=== PATIENT | male | born 1950 | race Two or more races ===

== ENCOUNTER 2018-02-01 11:34 | Outpatient (CLI) | payer MEDICARE, OTHER | END 2018-02-01 23:59 | LOC: WOU 11:34 | PROVIDERS: ATTEND Podiatrist Foot & Ankle Surgery | DX: E11.610 Type 2 diabetes mellitus with diabetic neuropathic arthropathy (principal); E11.42 Type 2 diabetes mellitus with diabetic polyneuropathy; E11.22 Type 2 diabetes mellitus with diabetic chronic kidney disease; I12.0 Hypertensive chronic kidney disease with stage 5 chronic kidney disease or end stage renal disease; N18.6 End stage renal disease; Z99.2 Dependence on renal dialysis; Z79.4 Long term (current) use of insulin; Z79.82 Long term (current) use of aspirin; Z79.899 Other long term (current) drug therapy; E78.5 Hyperlipidemia, unspecified; I25.2 Old myocardial infarction; Z87.891 Personal history of nicotine dependence; Z95.1 Presence of aortocoronary bypass graft; Z98.62 Peripheral vascular angioplasty status ==

== ENCOUNTER 2018-02-22 13:00 | Outpatient (CLI) | payer MEDICARE | END 2018-02-22 23:59 | disposition home or self-care (01) | LOC: WOU 13:00 | PROVIDERS: ATTEND Podiatrist Foot & Ankle Surgery | DX: E11.610 Type 2 diabetes mellitus with diabetic neuropathic arthropathy (principal); E11.42 Type 2 diabetes mellitus with diabetic polyneuropathy; R60.0 Localized edema; M25.374 Other instability, right foot; Z79.4 Long term (current) use of insulin; Z79.82 Long term (current) use of aspirin | CPT/HCPCS: G0463 ==

== ENCOUNTER 2018-03-29 11:02 | Outpatient (CLI) | payer MEDICARE | END 2018-03-29 23:59 | disposition home health service (06) | LOC: WOU 11:02 | PROVIDERS: ATTEND Podiatrist Foot & Ankle Surgery | DX: E11.622 Type 2 diabetes mellitus with other skin ulcer (principal); L97.318 Non-pressure chronic ulcer of right ankle with other specified severity; E11.610 Type 2 diabetes mellitus with diabetic neuropathic arthropathy; E11.42 Type 2 diabetes mellitus with diabetic polyneuropathy; E11.21 Type 2 diabetes mellitus with diabetic nephropathy; Z79.4 Long term (current) use of insulin; Z99.2 Dependence on renal dialysis; Z79.82 Long term (current) use of aspirin; Z79.899 Other long term (current) drug therapy | CPT/HCPCS: A6402; G0463; Z7610 ==

== ENCOUNTER 2018-04-05 10:52 | Outpatient (CLI) | payer MEDICARE | END 2018-04-05 23:59 | disposition home health service (06) | LOC: WOU 10:52 | PROVIDERS: ATTEND Podiatrist Foot & Ankle Surgery | DX: E11.621 Type 2 diabetes mellitus with foot ulcer (principal); L97.318 Non-pressure chronic ulcer of right ankle with other specified severity; E11.610 Type 2 diabetes mellitus with diabetic neuropathic arthropathy; E11.42 Type 2 diabetes mellitus with diabetic polyneuropathy; L84 Corns and callosities; M21.40 Flat foot [pes planus] (acquired), unspecified foot; Z79.82 Long term (current) use of aspirin; Z79.4 Long term (current) use of insulin; Z79.899 Other long term (current) drug therapy | CPT/HCPCS: A6402; G0463 ==

== ENCOUNTER 2018-04-12 11:01 | Outpatient (CLI) | payer MEDICARE, MEDICAID | END 2018-04-12 23:59 | disposition home or self-care (01) | LOC: WOU 11:01 | PROVIDERS: ATTEND Podiatrist Foot & Ankle Surgery | DX: E11.622 Type 2 diabetes mellitus with other skin ulcer (principal); L97.318 Non-pressure chronic ulcer of right ankle with other specified severity; E11.610 Type 2 diabetes mellitus with diabetic neuropathic arthropathy; Z79.4 Long term (current) use of insulin; L84 Corns and callosities; Z79.82 Long term (current) use of aspirin; Z79.899 Other long term (current) drug therapy | CPT/HCPCS: A6402; G0463; Z7610 ==

== ENCOUNTER 2018-06-14 11:20 | Outpatient (CLI) | payer MEDICARE, MEDICAID | END 2018-06-14 23:59 | disposition home health service (06) | LOC: WOU 11:20 | PROVIDERS: ATTEND Podiatrist Foot & Ankle Surgery | DX: Z47.89 Encounter for other orthopedic aftercare (principal); E11.610 Type 2 diabetes mellitus with diabetic neuropathic arthropathy; L03.115 Cellulitis of right lower limb; Z98.1 Arthrodesis status; I10 Essential (primary) hypertension; E78.5 Hyperlipidemia, unspecified; I25.2 Old myocardial infarction; Z87.891 Personal history of nicotine dependence; Z95.1 Presence of aortocoronary bypass graft | CPT/HCPCS: A6402; G0463; Z7610 ==

== ENCOUNTER 2018-06-21 09:23 | Outpatient (CLI) | payer MEDICARE, MEDICAID | END 2018-06-21 23:59 | disposition home health service (06) | LOC: WOU 09:23 | PROVIDERS: ATTEND Podiatrist Foot & Ankle Surgery | DX: Z47.89 Encounter for other orthopedic aftercare (principal); Z98.1 Arthrodesis status; M14.671 Charcot's joint, right ankle and foot; R60.0 Localized edema; L53.9 Erythematous condition, unspecified; Z79.82 Long term (current) use of aspirin | CPT/HCPCS: 73630; A6402 ×3; G0463; J3490; Z7610 ==

== ENCOUNTER 2018-08-30 09:27 | Outpatient (CLI) | payer MEDICARE, OTHER | END 2018-08-30 23:59 | disposition home or self-care (01) | LOC: WOU 09:27 | PROVIDERS: ATTEND Podiatrist Foot & Ankle Surgery | DX: E11.610 Type 2 diabetes mellitus with diabetic neuropathic arthropathy (principal); E11.42 Type 2 diabetes mellitus with diabetic polyneuropathy; R60.0 Localized edema; R26.89 Other abnormalities of gait and mobility; Z79.82 Long term (current) use of aspirin | CPT/HCPCS: 82962-TC; G0463 ==

== ENCOUNTER 2018-09-27 09:00 | Outpatient (CLI) | payer MEDICARE, OTHER | END 2018-09-27 23:59 | disposition home or self-care (01) | LOC: WOU 09:00 | PROVIDERS: ATTEND Podiatrist Foot & Ankle Surgery | DX: E11.610 Type 2 diabetes mellitus with diabetic neuropathic arthropathy (principal); E11.22 Type 2 diabetes mellitus with diabetic chronic kidney disease; E11.42 Type 2 diabetes mellitus with diabetic polyneuropathy; N18.6 End stage renal disease; Z99.2 Dependence on renal dialysis; Z79.4 Long term (current) use of insulin; B35.1 Tinea unguium; R60.9 Edema, unspecified; Z79.82 Long term (current) use of aspirin | CPT/HCPCS: G0463; Z7610 ==

== ENCOUNTER 2018-10-25 10:25 | Outpatient (CLI) | payer MEDICARE, OTHER | END 2018-10-25 23:59 | disposition home or self-care (01) | LOC: WOU 10:25 | PROVIDERS: ATTEND Podiatrist Foot & Ankle Surgery | DX: E11.610 Type 2 diabetes mellitus with diabetic neuropathic arthropathy (principal); R26.9 Unspecified abnormalities of gait and mobility; E11.42 Type 2 diabetes mellitus with diabetic polyneuropathy; Z79.4 Long term (current) use of insulin; Z79.82 Long term (current) use of aspirin; R60.0 Localized edema | CPT/HCPCS: G0463 ==

== ENCOUNTER 2018-11-22 10:30 | Outpatient (CLI) | payer MEDICARE, OTHER | END 2018-11-22 23:59 | disposition home or self-care (01) | LOC: WOU 10:30 | PROVIDERS: ATTEND Podiatrist Foot & Ankle Surgery | DX: E11.610 Type 2 diabetes mellitus with diabetic neuropathic arthropathy (principal); E11.42 Type 2 diabetes mellitus with diabetic polyneuropathy; Z79.82 Long term (current) use of aspirin; Z79.4 Long term (current) use of insulin; Z79.891 Long term (current) use of opiate analgesic; R60.0 Localized edema; Z98.890 Other specified postprocedural states | CPT/HCPCS: G0463 ==

== ENCOUNTER 2018-12-20 10:00 | Outpatient (CLI) | payer MEDICARE, OTHER | END 2018-12-20 23:59 | disposition home or self-care (01) | LOC: WOU 10:00 | PROVIDERS: ATTEND Podiatrist Foot & Ankle Surgery | DX: E11.610 Type 2 diabetes mellitus with diabetic neuropathic arthropathy (principal); E11.42 Type 2 diabetes mellitus with diabetic polyneuropathy; R60.0 Localized edema; B35.1 Tinea unguium; B35.3 Tinea pedis; Z79.82 Long term (current) use of aspirin; Z79.4 Long term (current) use of insulin; Z79.891 Long term (current) use of opiate analgesic | CPT/HCPCS: G0463 ==

== ENCOUNTER 2019-02-14 11:05 | Outpatient (CLI) | payer MEDICARE, OTHER | END 2019-02-14 23:59 | disposition home or self-care (01) | LOC: WOU 11:05 | PROVIDERS: ATTEND Podiatrist Foot & Ankle Surgery | DX: E11.610 Type 2 diabetes mellitus with diabetic neuropathic arthropathy (principal); E11.42 Type 2 diabetes mellitus with diabetic polyneuropathy; Z79.4 Long term (current) use of insulin; R60.0 Localized edema; Z79.82 Long term (current) use of aspirin; Z79.899 Other long term (current) drug therapy | CPT/HCPCS: G0463 ==

== ENCOUNTER 2019-06-06 10:45 | Outpatient (CLI) | payer MEDICARE, OTHER | END 2019-06-06 23:59 | disposition home health service (06) | LOC: WOU 10:45 | PROVIDERS: ATTEND Podiatrist Foot & Ankle Surgery | DX: E11.610 Type 2 diabetes mellitus with diabetic neuropathic arthropathy (principal); E11.42 Type 2 diabetes mellitus with diabetic polyneuropathy; E11.22 Type 2 diabetes mellitus with diabetic chronic kidney disease; I12.0 Hypertensive chronic kidney disease with stage 5 chronic kidney disease or end stage renal disease; N18.6 End stage renal disease; Z99.2 Dependence on renal dialysis; Z87.891 Personal history of nicotine dependence; Z79.4 Long term (current) use of insulin; Z98.1 Arthrodesis status; Z95.1 Presence of aortocoronary bypass graft | CPT/HCPCS: G0463 ==

== ENCOUNTER 2019-08-01 11:00 | Outpatient (CLI) | payer MEDICARE, OTHER | END 2019-08-01 23:59 | disposition home health service (06) | LOC: WOU 11:00 | PROVIDERS: ATTEND Podiatrist Foot & Ankle Surgery | DX: E11.621 Type 2 diabetes mellitus with foot ulcer (principal); L97.512 Non-pressure chronic ulcer of other part of right foot with fat layer exposed; E11.610 Type 2 diabetes mellitus with diabetic neuropathic arthropathy; E11.42 Type 2 diabetes mellitus with diabetic polyneuropathy; L03.031 Cellulitis of right toe; Z79.899 Other long term (current) drug therapy | CPT/HCPCS: G0463 ==

== ENCOUNTER → 2019-08-08 | Outpatient (CLI) | payer MEDICARE, OTHER ==
[~2019-08-08] MED LIST: ALLO100T PO; ASPI-1169 PO; ATOR10TA PO; CALC667C6 PO; CARI350T27 PO; CHOL200026 PO; DICL100G34 TD; DOXA4TAB3 PO; DULO30CA52 PO; FOLI0.8T2 PO; GABA600T12 PO; HYDR-3972 PO; INSU100I4 SQ; INSU300I SQ; LEVO25TA9 PO; METO25TA4 PO; OMEG1CAP40 PO; TRAZ-252 PO; TRIA80CR12 TD
== END | disposition home or self-care (01) ==
LOC: WOU 11:00
PROVIDERS: ATTEND Podiatrist Foot & Ankle Surgery
DX: E11.621 Type 2 diabetes mellitus with foot ulcer (principal); L97.512 Non-pressure chronic ulcer of other part of right foot with fat layer exposed; E11.610 Type 2 diabetes mellitus with diabetic neuropathic arthropathy; E11.22 Type 2 diabetes mellitus with diabetic chronic kidney disease; E11.21 Type 2 diabetes mellitus with diabetic nephropathy; N18.6 End stage renal disease; Z99.2 Dependence on renal dialysis; T25.11 Burn of first degree of ankle; T31.0 Burns involving less than 10% of body surface; X08.8XXD Exposure to other specified smoke, fire and flames, subsequent encounter; Z79.899 Other long term (current) drug therapy
CPT/HCPCS: 11042

== ENCOUNTER 2019-08-15 10:40 | Outpatient (CLI) | payer MEDICARE, OTHER | END 2019-08-15 23:59 | disposition home health service (06) | LOC: WOU 10:40 | PROVIDERS: ATTEND Podiatrist Foot & Ankle Surgery | DX: E11.621 Type 2 diabetes mellitus with foot ulcer (principal); L97.512 Non-pressure chronic ulcer of other part of right foot with fat layer exposed; E11.42 Type 2 diabetes mellitus with diabetic polyneuropathy; E11.610 Type 2 diabetes mellitus with diabetic neuropathic arthropathy; T25.212A Burn of second degree of left ankle, initial encounter; T31.0 Burns involving less than 10% of body surface; X08.8XXA Exposure to other specified smoke, fire and flames, initial encounter; Y92.89 Other specified places as the place of occurrence of the external cause | CPT/HCPCS: 11042 ==

== ENCOUNTER 2019-08-22 11:00 | Outpatient (CLI) | payer MEDICARE, OTHER | END 2019-08-22 23:59 | disposition home health service (06) | LOC: WOU 11:00 | PROVIDERS: ATTEND Podiatrist Foot & Ankle Surgery | DX: E11.621 Type 2 diabetes mellitus with foot ulcer (principal); L97.512 Non-pressure chronic ulcer of other part of right foot with fat layer exposed; T25.212A Burn of second degree of left ankle, initial encounter; T31.0 Burns involving less than 10% of body surface; E11.42 Type 2 diabetes mellitus with diabetic polyneuropathy; E11.610 Type 2 diabetes mellitus with diabetic neuropathic arthropathy; Z79.899 Other long term (current) drug therapy | CPT/HCPCS: 11042 ==

== ENCOUNTER 2019-08-29 09:20 | Outpatient (CLI) | payer MEDICARE, OTHER ==
[2019-08-29] MEDS ORDERED: CHOL200026 PO (12:24)
[2019-08-29] MEDS ORDERED: LEVO25TA9 PO (12:24)
[2019-08-29] MEDS ORDERED: ATOR10TA PO (12:24)
[2019-08-29] MEDS ORDERED: HYDR-3972 PO (12:24)
[2019-08-29] MEDS ORDERED: DOXA4TAB3 PO (12:24)
[2019-08-29] MEDS ORDERED: DICL100G34 TD (12:24)
[2019-08-29] MEDS ORDERED: TRIA80CR12 TD (12:24)
[2019-08-29] MEDS ORDERED: FOLI0.8T2 PO (12:24)
[2019-08-29] MEDS ORDERED: METO25TA4 PO (12:24)
[2019-08-29] MEDS ORDERED: GABA600T12 PO (12:24)
[2019-08-29] MEDS ORDERED: CARI350T27 PO (12:24)
[2019-08-29] MEDS ORDERED: TRAZ-252 PO (12:24)
[2019-08-29] MEDS ORDERED: OMEG1CAP40 PO (12:24)
[2019-08-29] MEDS ORDERED: ASPI-1169 PO (12:24)
[2019-08-29] MEDS ORDERED: DULO30CA52 PO (12:24)
[2019-08-29] MEDS ORDERED: INSU100I4 SQ (12:24)
[2019-08-29] MEDS ORDERED: CALC667C6 PO (12:24)
[2019-08-29] MEDS ORDERED: ALLO100T PO (12:24)
[2019-08-29] MEDS ORDERED: INSU300I SQ (12:24)
== END 2019-08-29 23:59 | disposition home or self-care (01) ==
LOC: WOU 09:20
PROVIDERS: ATTEND Podiatrist Foot & Ankle Surgery
DX: E11.42 Type 2 diabetes mellitus with diabetic polyneuropathy (principal); E11.621 Type 2 diabetes mellitus with foot ulcer; L97.519 Non-pressure chronic ulcer of other part of right foot with unspecified severity; T25.012D Burn of unspecified degree of left ankle, subsequent encounter; X08.8XXD Exposure to other specified smoke, fire and flames, subsequent encounter; E11.610 Type 2 diabetes mellitus with diabetic neuropathic arthropathy; R42 Dizziness and giddiness; R41.82 Altered mental status, unspecified; Z79.899 Other long term (current) drug therapy
CPT/HCPCS: 82962; G0463

== ENCOUNTER 2019-08-29 09:31 | Inpatient (IN) | payer MEDICARE, OTHER ==
[~2019-08-29] VITALS: Ht 170.2 cm; Wt 98.9 kg
--- NOTE | 2019-08-29 09:45 | NUR ---
ashleigh, from wound center, dizzy and weak x 1 day, on HD last HD was yesterday. Patient a/ox4, breathing even and unlabored, no sob noted, changed into gown, attached to the gambling broker.
[2019-08-29] MEDS ORDERED: IV NS 0.9% 1,000 ML BAG IV ONE (10:00)
[2019-08-29 10:05] LABS: BASOPHILS # (AUTO) 0.1 /CMM (0.0-0.2); LYMPHOCYTES # (AUTO) 1.1 /CMM (0.8-4.8); MONOCYTES % (AUTO) 13.8 % (2.0-12.0)
[2019-08-29 10:10] LABS: EOSINOPHILS % (AUTO) 2.4 % (0.0-6.0); HEMATOCRIT 28 % (39-51); HEMOGLOBIN 9.1 g/dL (13.5-17.5); LYMPHOCYTES % (AUTO) 15.5 % (20.0-44.0); MEAN CORPUSCULAR HGB CONC 33 g/dl (31.0-36.0); MEAN CORPUSCULAR VOLUME 98 fL (80-96); NEUTROPHILS # (AUTO) 4.8 /CMM (1.8-8.9); NEUTROPHILS % (AUTO) 67.3 % (43.0-81.0); PLATELET COUNT (AUTO) 89 /CMM (150-450); RED BLOOD CELL COUNT(AUTO) 2.85 MIL/uL (4.5-6.0); WHITE BLOOD COUNT (AUTO) 7.1 K/uL (4.3-11.0)
[2019-08-29 10:13] LABS: CALCIUM, SERUM 8.9 mg/dL (8.5-10.1); CREATININE 6.4 mg/dL (0.6-1.3); POTASSIUM 3.5 mmol/L (3.5-5.1)
[2019-08-29 10:23] LABS: ALBUMIN 3.2 g/dL (3.4-5.0); BILIRUBIN,DIRECT 0.2 mg/dL (0.0-0.2); BILIRUBIN,TOTAL 0.7 mg/dL (0.2-1.0)
[2019-08-29] MEDS ORDERED: IV NS 0.9% 250 ML IV ONE ×2 (10:30→11:00)
--- NOTE | 2019-08-29 10:30 | NUR ---
IV ns 250 order cancelled due to unable to sign as administered. Order changed to another IV ns 250.
[2019-08-29 11:09] LABS: EOSINOPHILS % (MANUAL) 9 % (0-4); LYMPHOCYTES % (MANUAL) 20 % (16-48); MONOCYTES % (MANUAL) 11 % (0-11.0); NEUTROPHILS % (MANUAL) 60 (42-76)
--- NOTE | 2019-08-29 11:33 | NUR ---
ENDORSED TO PARDEEP MCDONNELL
--- NOTE | 2019-08-29 12:14 | NUR ---
CALLED NURSING SUP FOR TELE BED.
[2019-08-29] MEDS ORDERED: TRIA80CR12 TD (12:24)
[2019-08-29] MEDS ORDERED: HYDR-3972 PO (12:24)
[2019-08-29] MEDS ORDERED: GABA600T12 PO (12:24)
[2019-08-29] MEDS ORDERED: CHOL200026 PO (12:24)
[2019-08-29] MEDS ORDERED: ASPI-1169 PO (12:24)
[2019-08-29] MEDS ORDERED: DICL100G34 TD (12:24)
[2019-08-29] MEDS ORDERED: ATOR10TA PO (12:24)
[2019-08-29] MEDS ORDERED: DULO30CA52 PO (12:24)
[2019-08-29] MEDS ORDERED: FOLI0.8T2 PO (12:24)
[2019-08-29] MEDS ORDERED: INSU100I4 SQ (12:24)
[2019-08-29] MEDS ORDERED: CALC667C6 PO (12:24)
[2019-08-29] MEDS ORDERED: CARI350T27 PO (12:24)
[2019-08-29] MEDS ORDERED: TRAZ-252 PO (12:24)
[2019-08-29] MEDS ORDERED: OMEG1CAP40 PO (12:24)
[2019-08-29] MEDS ORDERED: METO25TA4 PO (12:24)
[2019-08-29] MEDS ORDERED: LEVO25TA9 PO (12:24)
[2019-08-29] MEDS ORDERED: DOXA4TAB3 PO (12:24)
[2019-08-29] MEDS ORDERED: ALLO100T PO (12:24)
[2019-08-29] MEDS ORDERED: INSU300I SQ (12:24)
--- NOTE | 2019-08-29 12:35 | NUR ---
NURSING SUP GAVE TELE BED 304-1.
--- NOTE | 2019-08-29 13:12 | NUR ---
report given to julieta summers for kimberly pt will be transported to [address] [place] [address]
--- NOTE | 2019-08-29 13:35 | NUR ---
pt transported to 3rd floor
--- NOTE | 2019-08-29 13:40 | NUR ---
TELE/RN NOTES RECEIVED PATIENT FROM ER ACCOMPANIED BY ER NURSE. PATIENT WAS ABLE TO TRANSFER BY AMBULATING TO HIS BED FROM THE DOOR OF HIS ROOM. INITIAL SKIN ASSESSMENT WAS DONE. PHOTOS WAS TAKEN AND WAS PLACED IN THE CHART. PATIENT NOTED WITH IV ACCESS ON RAC #18G. INTACT AND PATENT. FLUSHING WELL. NO S/S OF INFECTION OR INFILTRATION. PATIENT HAS DIALYSIS SITE ON THE [facility]. ALL NEEDS ANTICIPATED. CALL LIGHT WITHIN REACHED. SAFETY MAINTAINED. BED LOCKED AND IN LOWEST POSITION. WILL CONTINUE TO MONITOR CLOSELY.
[2019-08-29] MEDS ORDERED: HYDROCODONE/APAP 5/325MG 1 EACH TABLET PO PRN (14:00)
[2019-08-29] MEDS ORDERED: TRIAMCINOLONE ACETONIDE 0.1% CR 15 GM TUBE TP PRN (14:00)
[2019-08-29] MEDS ORDERED: MAG HYDROX/AL HYDROX/SIMETH 30 ML UDC PO PRN (14:00)
[2019-08-29] MEDS ORDERED: ACETAMINOPHEN 325 MG TABLET PO PRN (14:00)
[2019-08-29] MEDS ORDERED: DEXTROSE 50%-WATER 50 ML DISP.SYRIN IV PRN (14:00)
[2019-08-29] MEDS ORDERED: DICLOFENAC TOPICAL 100 GM GEL..GM. TP PRN (14:00)
[2019-08-29] MEDS ORDERED: MAGNESIUM HYDROXIDE 30 ML UDC PO PRN (14:00)
[2019-08-29] MEDS ORDERED: ZOLPIDEM TARTRATE 5 MG TABLET PO PRN (14:00)
[2019-08-29] MEDS ORDERED: ONDANSETRON HCL/PF 4 MG/2 ML VIAL IVP PRN (14:00)
[2019-08-29] MEDS ORDERED: Z GUARD REMEDY 2 OZ OINT TP PRN (14:00)
--- NOTE | 2019-08-29 16:43 | NUR ---
DR. SNOWDEN ORDERED A CT ANGIO HEART W/ 3D, BUT WE DON'T HAVE NURSE FOR TODAY PER NURSING SUP AND PT. HAVING DIALYSIS TOMORROW,RN (KATIE) DOESN'T KNOW WHAT TIME THE PT. GONNA HAVE DIALYSIS. DR. SNOWDEN WANTS IT DONE FIRST THING IN THE MORNING.
--- NOTE | 2019-08-29 16:50 | NUR ---
TELE/RN NOTES INFORMED DR. CASTELLANOS REGARDING PATIENT CONCERN ABOUT HIS SORE THROAT AND COUGHING. ALSO REGARDING HIS HIP PAIN. DR. CASTELLANOS ORDERED HIP XRAY.
[2019-08-29 16:54] VITALS: BP 97/49
--- NOTE | 2019-08-29 17:16 | NUR ---
TELE/RN NOTES INFORMED DR. CASTELLANOS REGARDING CRITICAL LAB OF TROPONIN. RECEIVED A PHONE CALL FROM DR. SNOWDEN TO START HEPARIN DRIP. ALL ORDERS NOTED AND CARRIED OUT.
[2019-08-29] MEDS: ALLOPURINOL 100 MG TABLET PO SCH (17:20)
[2019-08-29] MEDS: CALCIUM ACETATE 667 MG TABLET PO SCH (17:21)
[2019-08-29] MEDS: GABAPENTIN 300 MG CAPSULE PO SCH (17:21)
[2019-08-29] MEDS: CARISOPRODOL 350 MG TABLET PO SCH (17:21)
[2019-08-29] MEDS ORDERED: HEPARIN INFUSION/D5W 500 ML IV PRN (17:30)
[2019-08-29] MEDS: BLOOD SUGAR DIAGNOSTIC 1 EACH STRIP IN SCH ×2 (18:00→21:07)
[2019-08-29] MEDS: INSULIN REGULAR, HUMAN 100 UNIT/ML 3 ML VIAL SQ PRN ×2 (18:02→21:09)
--- NOTE | 2019-08-29 19:30 | NUR ---
FISHER TRAP OPENING NOTES RECEIVED PATIENT IN CHAIR, ALERT AND ORIENTED X4, VERBALLY RESPONSIVE, ABLE TO MAKE NEEDS KNOWN. BREATHING EVEN AND UNLABORED. NO SOB NOTED. ON ROOM AIR. SR WITH 1ST DEGREE AV BLOCK ON TELE. WITH COMPLAINTS OF HIP PAIN AND REQUESTING FOR PAIN MED - WILL GIVE PRN NORCO. OTHERWISE, DENIES CHEST PAIN, N/V, SOB. IV ON RIGHT AC INTACT AND PATENT. NOTED WITH LEFT ARM AV SHUNT C/D/I. PATIENT AMBULATORY WITH STEAD GAIT. PATIENT TO BE STARTED ON HEPARIN DRIP, AWAITING FOR PTT RESULTS. ALL OTHER NEEDS ATTENDED TO, SAFETY MEASURES IN PLACE, CALL LIGHT WITHIN REACH. WILL CONTINUE TO MONITOR.
--- NOTE | 2019-08-29 19:33 | NUR ---
TELE/RN CLOSING NOTES PATIENT CONTINUES TO REMAIN IN STABLE CONDITION THROUGHOUT THE SHIFT. PROVIDED COMFORT AND SAFETY. ENDORSED TO PM NURSE REGARDING THE HEPARIN DRIP. PATIENT ABLE TO TOLERATE MEALS AND MEDS WELL. PER DR. SNOWDEN NO HEPARIN BOLUS. ALL NEEDS ANTICIPATED. CALL LIGHT WITHIN REACHED. BED LOCKED AND IN LOWEST POSITION. WILL CONTINUE TO MONITOR CLOSELY.
[2019-08-29] MEDS: HYDROCODONE/APAP 5/325MG 1 EACH TABLET PO PRN (19:54)
--- NOTE | 2019-08-29 20:00 | NUR ---
SKIVER UPPERS OR LININGS NOTES PATIENT REQUESTED FOR MEDICATION FOR COUGH AND COLD. PAGED DR. MARTINEZ, AND INFORMED OF PATIENT'S REQUEST, WITH ORDERS FOR MUCINEX 600MG Q12H PRN. ORDER NOTED AND CARRIED OUT. WILL CONTINUE TO MONITOR.
[2019-08-29 20:15] VITALS: BP 113/58
[2019-08-29] MEDS: GUAIFENESIN LA 600 MG TABLET.SA PO PRN (21:06)
[2019-08-29] MEDS: ATORVASTATIN 10 MG TABLET PO SCH (21:07)
[2019-08-29] MEDS: TRAZODONE 50 MG TABLET PO SCH (21:07)
[2019-08-29] MEDS: INSULIN GLARGINE, 100 UNIT/ML CARTRIDGE SQ SCH (21:09)
--- NOTE | 2019-08-29 23:04 | NUR ---
AIX ARCHITECT NOTES RECEIVED CRITICAL RESULT FOR TROPONIN 0.703. PREVIOUS ONE WAS 0.614. PATIENT DENIES CHEST PAIN, DENIES N/V, DENIES SOB. VSS. SR WITH 1ST DEGREE AV BLOCK ON TELE MONITOR. PAGED DR. MARTINEZ TO RELAY RESULTS, WELL TO INFORM HIM THAT PATIENT STARTED ON HEPARIN DRIP AT AROUND 2019. PER DR. MARTINEZ, CONTINUE HEPARIN DRIP AND MONITOR PATIENT.
[2019-08-30] VITALS (30 sets, daily range): BP systolic 96–154; BP diastolic 38–68
--- NOTE | 2019-08-30 03:50 | NUR ---
AERIAL PHOTOGRAPHER NOTES RECEIVED PTT RESULTS OF 78.4. DECREASED HEPARIN DRIP BY 100 UNITS/HR PER PROTOCOL. HEPARIN DRIP NOW RUNNING AT 1100 UNITS/HR. VERIFIED WITH KECIA YBARRA. PTT ORDERED FOR 0942. NO SIGNS OF BLEEDING. PATIENT IN NO DISTRESS. VSS. WILL CONTINUE TO MONITOR.
[2019-08-30 06:33] LABS: BASOPHILS # (AUTO) 0.1 /CMM (0.0-0.2); EOSINOPHILS % (AUTO) 3.3 % (0.0-6.0); HEMATOCRIT 27 % (39-51); HEMOGLOBIN 8.9 g/dL (13.5-17.5); LYMPHOCYTES # (AUTO) 1.6 /CMM (0.8-4.8); LYMPHOCYTES % (AUTO) 23.1 % (20.0-44.0); MEAN CORPUSCULAR HGB CONC 33 g/dl (31.0-36.0); MEAN CORPUSCULAR VOLUME 97 fL (80-96); MONOCYTES # (AUTO) 0.8 /CMM (0.1-1.30); MONOCYTES % (AUTO) 11.8 % (2.0-12.0); NEUTROPHILS # (AUTO) 4.2 /CMM (1.8-8.9); NEUTROPHILS % (AUTO) 60.8 % (43.0-81.0); PLATELET COUNT (AUTO) 77 /CMM (150-450); RED BLOOD CELL COUNT(AUTO) 2.79 MIL/uL (4.5-6.0); WHITE BLOOD COUNT (AUTO) 6.8 K/uL (4.3-11.0)
[2019-08-30] MEDS: BLOOD SUGAR DIAGNOSTIC 1 EACH STRIP IN SCH ×4 (06:51→21:11)
[2019-08-30] MEDS: INSULIN REGULAR, HUMAN 100 UNIT/ML 3 ML VIAL SQ PRN ×2 (06:52→21:24)
--- NOTE | 2019-08-30 06:54 | NUR ---
MANAGER INVESTIGATIONS CLOSING NOTES PATIENT RESTING IN BED. IN NO DISTRESS. BREATHING EVEN AND UNLABORED. NO SOB NOTED. ON ROOM AIR. VSS. SR WITH 1ST DEGREE AV BLOCK ON TELE. DENIES PAIN OR DISCOMFORT. DENIES CHEST PAIN, N/V, SOB. IV ON RIGHT AC INTACT AND PATENT WITH HEPARIN DRIP RUNNING AT 1100 UNITS/HR. NO BLEEDING NOTED OR ANY OTHER ADVERSE EFFECTS. ALL OTHER NEEDS ATTENDED TO, SAFETY MEASURES IN PLACE, CALL LIGHT WITHIN REACH. WILL ENDORSE TO ONCOMING NURSE FOR CHRIST[place].
[2019-08-30 07:03] LABS: B-TYPE NATRIURETIC PEPTIDE 25328 PG/ML (0-125); CALCIUM, SERUM 8.4 mg/dL (8.5-10.1); CARBON DIOXIDE 30 mmol/L (21-32); CHLORIDE 94 mmol/L (98-107); GLUCOSE 119 mg/dL (74-106); MAGNESIUM 2.8 mg/dL (1.8-2.4); PHOSPHORUS 6.9 mg/dL (2.5-4.9); POTASSIUM 3.9 mmol/L (3.5-5.1); SODIUM SERUM 133 mmol/L (136-145); UREA NITROGEN, BLOOD 37 mg/dL (7-18)
[2019-08-30 07:05] LABS: CREATININE 7.9 mg/dL (0.6-1.3)
[2019-08-30 07:06] LABS: CHOLESTEROL 50 mg/dL (<200); HDL CHOLESTEROL 55 mg/dL (40-60); LDL 26 mg/dL (0-99); THYROID STIMULATING HORMONE 3.859 uIU/mL (0.358-3.74)
--- NOTE | 2019-08-30 07:30 | NUR ---
TRANSCRIPTION NOTES PT IN BED, ASLEEP, EASY TO AROUSE, ALERT AND ORIENTED, NO COMPLAINT OF PAIN OR ANY DISCOMFORT, NOT IN DISTRESS, CALL LIGHT WITHIN REACH, NEEDS ATTENDED.
[2019-08-30] MEDS: CALCIUM ACETATE 667 MG TABLET PO SCH ×3 (08:00→17:22)
--- NOTE | 2019-08-30 08:16 | NUR ---
PICKER TENDER NOTES RECEIVED ORDER FROM DR. SNOWDEN FOR LEFT HEART CATHETERIZATION, ALSO ORDERED TO HOLD HEPARIN FOR NOW.
[2019-08-30] MEDS: GABAPENTIN 300 MG CAPSULE PO SCH ×2 (08:28→17:22)
[2019-08-30] MEDS: ASPIRIN 81 MG TAB.CHEW PO SCH (08:28)
[2019-08-30] MEDS: CARISOPRODOL 350 MG TABLET PO SCH ×3 (08:28→17:22)
[2019-08-30] MEDS: DULOXETINE HCL 30 MG CAPSULE.DR PO SCH (08:28)
[2019-08-30] MEDS: LEVOTHYROXINE SODIUM 25 MCG TABLET PO SCH (08:29)
[2019-08-30] MEDS: ALLOPURINOL 100 MG TABLET PO SCH ×2 (08:29→17:22)
[2019-08-30 08:30] LABS: TRIGLYCERIDES < 15 mg/dL (30-150)
[2019-08-30 09:19] LABS: EOSINOPHILS % (MANUAL) 8 % (0-4); LYMPHOCYTES % (MANUAL) 17 % (16-48); MONOCYTES % (MANUAL) 10 % (0-11.0); NEUTROPHILS % (MANUAL) 65 (42-76)
[2019-08-30] MEDS ORDERED: LIDOCAINE HCL/PF 1% 30 ML SDV ONE (09:42)
[2019-08-30] MEDS ORDERED: IODIXANOL 150 ML IV ONE (09:42)
--- NOTE | 2019-08-30 09:47 | NUR ---
WOUND CARE CONSULT: PT NOT SEEN YET FOR SKIN ASSESSMENT DUE TO PT BEING TAKEN FOR CARDIAC CATH PROCEDURE. DR HERRERA NOTIFIED OF PT'S ADMISSION. WILL SEE PT PT CONDITION PERMITS.
--- NOTE | 2019-08-30 10:00 | NUR ---
BANDSAW OPERATOR NOTES PT IN BED, AWAKE, ALERT AND ORIENTED, NO COMPLAINT AT THIS TIME, PICKED UP BY CARDIAC CATH STAFF, LEFT VIA BED IN STABLE CONDITION.
[2019-08-30] MEDS ORDERED: IV NS 0.9% 250 ML IV ONE (10:27)
[2019-08-30] MEDS ORDERED: IV SET PRIMARY PUMP SET 1 EA INFUS.SET MC ONE (11:43)
--- NOTE | 2019-08-30 11:45 | NUR ---
ICU/RN INITIAL NOTES RECEIVED PT FROM CARDIAC PATTERNMAKER HELPER. PT ALERT, AWAKE, FOLLOWS COMMANDS. PT ON ROOM AIR, NO DISTRESS NOTED. PT HAS RIGHT FEMORAL ARTERY ANGIOGRAPHY WITH PERCLOSE CLOSURE DEVICE. SITE ASSESSED, NO S/S OF BLEEDING NOTED, PULSES PRESENT AND PALPABLE. PT ON TELE SINUS WITH FIRST DEGREE AB BLOCK, SUBCUTANEOUS AICD IN PLACE. PT AMBULATORY WITH ASSIST. PT CONTINENT, LOW URINE OUTPUT. LEFT UPPER AR, AV SHUNT IN PLACE, PT SCHEDULED FOR HD TODAY. ALL NEEDS WILL BE ATTENDED TO, SAFETY MEASURES TAKEN, BED IN LOW POSITION, SIDE RAILS UP, CALL LIGHT WITHIN REACH.
--- NOTE | 2019-08-30 12:30 | NUR ---
ICU/RN: RIGHT FEMORAL SITE ASSESSED, NO S/S OF BLEEDING NOTED. PULSES CHECKED, PALPABLE AND REGULAR.
--- NOTE | 2019-08-30 13:00 | NUR ---
ICU/RN: RIGHT FEMORAL SITE ASSESSED, NO S/S OF BLEEDING NOTED. PULSES CHECKED, PALPABLE AND REGULAR.
--- NOTE | 2019-08-30 13:30 | NUR ---
ICU/RN: RIGHT FEMORAL SITE ASSESSED, NO S/S OF BLEEDING NOTED. PULSES CHECKED, PALPABLE AND REGULAR.
--- NOTE | 2019-08-30 14:00 | NUR ---
ICU/RN: RIGHT FEMORAL SITE ASSESSED, NO S/S OF BLEEDING NOTED. PULSES CHECKED, PALPABLE AND REGULAR.
[2019-08-30] MEDS: GUAIFENESIN LA 600 MG TABLET.SA PO PRN (14:24)
--- NOTE | 2019-08-30 16:30 | NUR ---
ICU/RN: HD DONE, 3LITERS OUT, VSS. NO DISTRESS NOTED.
--- NOTE | 2019-08-30 18:58 | NUR ---
ICU/RN: ENDING NOTES,AM BEDSIDE REPORT WILL BE ENDORSED TO NIGHT NURSE. PT ALERT, AWAKE, FOLLOWS COMMANDS. ALL NEEDS ATTENDED TO, SAFETY MEASURES TAKEN. RIGHT FEMORAL SITE C/D, NO S/S OF BLEEDING NOTED. WILL CONTINUE CARE.
--- NOTE | 2019-08-30 19:00 | NUR ---
RN OPENING NOTES: BEDSIDE REPORT RECEIVED FROM AM NURSE. NO RESPIRATORY DISTRESS. ON RA, TOLERATING WELL. NO PAIN AT THIS TIME. (R) FEMORAL SITE ASSESSED, NO ACTIVE BLEEDING NOTED. PERIPHERAL PULSES PRESENT. (R) AC #18 INTACT, PATENT, AND FLUSHING WELL. SALINE LOCKED. JENARO AV SHUNT INTACT. HD DONE TODAY, 3L OUT. ALL NEEDS ATTENDED. CALL LIGHT PLACED WITHIN REACH. WILL CONT. TO MONITOR.
[2019-08-30] MEDS: TRAZODONE 50 MG TABLET PO SCH (21:03)
[2019-08-30] MEDS: ATORVASTATIN 10 MG TABLET PO SCH (21:03)
[2019-08-30] MEDS: INSULIN GLARGINE, 100 UNIT/ML CARTRIDGE SQ SCH (21:25)
[2019-08-31] VITALS (20 sets, daily range): BP systolic 98–160; BP diastolic 47–97
--- NOTE | 2019-08-31 | NUR ---
RN NOTE: (R) FEMORAL SITE ASSESSED, NO ACTIVE BLEEDING NOTED, PERIPHERAL PULSES PRESENT. WILL CONT. TO MONITOR.
[2019-08-31] MEDS: HYDROCODONE/APAP 5/325MG 1 EACH TABLET PO PRN (01:36)
[2019-08-31] MEDS: GUAIFENESIN LA 600 MG TABLET.SA PO PRN ×2 (02:55→17:12)
--- NOTE | 2019-08-31 06:45 | NUR ---
RN NOTE: RN NOTE: DR. DURÁN AT BEDSIDE, ASSESSED PATIENT'S LLE WOUND AND REINFORCED WOUND DRESSING.
--- NOTE | 2019-08-31 07:15 | NUR ---
RN CLOSING NOTES: PATIENT IN BED, ASLEEP, EASILY AWAKENED. NO RESPIRATORY DISTRESS. NO CHEST PAIN. (R) FEMORAL SITE ASSESSED, NO ACTIVE BLEEDING, DRESSING INTACT. PERIPHERAL PULSES PRESENT. ALL NEEDS ATTENDED. SAFETY PRECAUTIONS IMPLEMENTED. CALL LIGHT PLACED WITHIN REACH. ENDORSED TO AM SHIFT NURSE FOR CONTINUITY OF CARE.
--- NOTE | 2019-08-31 07:25 | NUR ---
PUBLIC WORKS COMMISSIONER NOTES PATIENT RECEIVED AWAKE ALERT AND VERBALLY RESPONSIVE ABLE TO MAKE NEEDS KNOWN. RESPIRATIONS EVEN AND UNLABORED, NO DISTRESS NOTED. RIGHT AC IV ACCESS PATENT AND INTACT NO REDNESS OR INFILTRATION NOTED. PATIENT TO HAVE DIALYSIS TREATMENT TODAY AND BE DISCHARGED TO HOME. PATIENT KEPT CLEAN DRY AND COMFORTABLE, CALL LIGHT WITHIN EASY REACH
[2019-08-31] MEDS: BLOOD SUGAR DIAGNOSTIC 1 EACH STRIP IN SCH ×3 (08:12→17:01)
[2019-08-31] MEDS: INSULIN REGULAR, HUMAN 100 UNIT/ML 3 ML VIAL SQ PRN ×2 (08:15→12:23)
[2019-08-31] MEDS: GABAPENTIN 300 MG CAPSULE PO SCH ×2 (08:25→17:02)
[2019-08-31] MEDS: CALCIUM ACETATE 667 MG TABLET PO SCH ×3 (08:25→17:04)
[2019-08-31] MEDS: LEVOTHYROXINE SODIUM 25 MCG TABLET PO SCH (08:25)
[2019-08-31] MEDS: DULOXETINE HCL 30 MG CAPSULE.DR PO SCH (08:26)
[2019-08-31] MEDS: CARISOPRODOL 350 MG TABLET PO SCH ×3 (08:26→17:02)
[2019-08-31] MEDS: ALLOPURINOL 100 MG TABLET PO SCH ×2 (08:26→17:02)
[2019-08-31] MEDS: ASPIRIN 81 MG TAB.CHEW PO SCH (09:00)
--- NOTE | 2019-08-31 15:00 | NUR ---
RN NOTES PER DR. CASTELLANOS PT TO DISCHARGE TO HOME AFTER DIALYSIS
--- NOTE | 2019-08-31 18:15 | NUR ---
OPTICAL GOODS DRILL OPERATOR ICU NOTES PATIENT AWAKE ALERT AND VERBALLY RESPONSIVE ABLE TO MAKE NEEDS KNOWN. RESPIRATIONS EVEN AND UNLABORED, NO DISTRESS NOTED. RIGHT AC IV ACCESS REMOVED PATIENT BEING DISCHARGED NO INFILTRATION NOTED. PATIENT TO HAD DIALYSIS TREATMENT TODAY WITH NO ADVERSE REACTIONS. RN REVIEWED ALL DISCHARGE INSTRUCTIONS AND MEDICATIONS FOR HOME, PATIENT STATES WILL MAKE FOLLOW UP VISIT WITH PRIMARY PHYSICIAN. ALL DUE MEDICATIONS GIVEN WITH NO ADVERSE REACTIONS NOTED. PICTURES OF WOUNDS PLACED IN CHART.PATIENT ASSISTED TO LOBBY BY RN ALL PERSONAL BELONGINGS ACCOUNTED FOR
== END 2019-08-31 18:15 | disposition home health service (06) | DRG 280 ==
LOC: ER 09:31 → TELE 13:02 → ICU 08-30 11:34
PROC: 4A023N7 Measurement of Cardiac Sampling and Pressure, Left Heart, Percutaneous Approach (ICD-10-PCS; principal; 2019-08-30)
PROC: B211YZZ Fluoroscopy of Multiple Coronary Arteries using Other Contrast (ICD-10-PCS; 2019-08-30)
PROC: B213YZZ Fluoroscopy of Multiple Coronary Artery Bypass Grafts using Other Contrast (ICD-10-PCS; 2019-08-30)
PROC: 5A1D70Z Performance of Urinary Filtration, Intermittent, Less than 6 Hours Per Day (ICD-10-PCS; 2019-08-30)
PROC: B41FYZZ Fluoroscopy of Right Lower Extremity Arteries using Other Contrast (ICD-10-PCS; 2019-08-30)
DX: I95.3 Hypotension of hemodialysis (principal); N18.6 End stage renal disease; I21.A1 Myocardial infarction type 2; I12.0 Hypertensive chronic kidney disease with stage 5 chronic kidney disease or end stage renal disease; E88.09 Other disorders of plasma-protein metabolism, not elsewhere classified; I25.10 Atherosclerotic heart disease of native coronary artery without angina pectoris; I48.91 Unspecified atrial fibrillation; D63.1 Anemia in chronic kidney disease; D69.6 Thrombocytopenia, unspecified; E11.22 Type 2 diabetes mellitus with diabetic chronic kidney disease; E11.65 Type 2 diabetes mellitus with hyperglycemia; Z99.2 Dependence on renal dialysis; Z95.1 Presence of aortocoronary bypass graft; E66.9 Obesity, unspecified; Z79.4 Long term (current) use of insulin; E87.8 Other disorders of electrolyte and fluid balance, not elsewhere classified; Z91.81 History of falling; Z86.74 Personal history of sudden cardiac arrest; Z68.34 Body mass index [BMI] 34.0-34.9, adult
CPT/HCPCS: 36415; 70450-TC; 71045-TC; 73521; 80048-TC; 80061-TC; 80076-TC; 82962-TC; 83735-TC; 83880; 84100-TC; 84443-TC; 84484-TC; 85025-TC; 85610-TC; 85730-TC; 86706; 87081-TC; 87340; 90935-TC; 93307-TC; 93452; 93970-TC; A6253; C1887; C1894; G0378; J1644; J1815; J3490; J7030; J7050; Q9967

== ENCOUNTER 2019-10-03 11:40 | Outpatient (CLI) | payer MEDICARE, OTHER | END 2019-10-03 23:59 | disposition home health service (06) | LOC: WOU 11:40 | PROVIDERS: ATTEND Podiatrist Foot & Ankle Surgery | DX: T25.312A Burn of third degree of left ankle, initial encounter (principal); T31.0 Burns involving less than 10% of body surface; X08.8XXA Exposure to other specified smoke, fire and flames, initial encounter; Y92.89 Other specified places as the place of occurrence of the external cause; E11.610 Type 2 diabetes mellitus with diabetic neuropathic arthropathy; E11.42 Type 2 diabetes mellitus with diabetic polyneuropathy; Z79.899 Other long term (current) drug therapy; Z95.1 Presence of aortocoronary bypass graft; Z98.1 Arthrodesis status ==

== ENCOUNTER 2019-10-04 11:20 | Outpatient (CLI) | payer MEDICARE, OTHER | END 2019-10-04 23:59 | disposition home health service (06) | LOC: WOU 11:20 | PROVIDERS: ATTEND Specialist | PROC: 0JDR0ZZ Extraction of Left Foot Subcutaneous Tissue and Fascia, Open Approach (ICD-10-PCS; principal; 2019-10-04) | DX: T25.312A Burn of third degree of left ankle, initial encounter (principal); T31.0 Burns involving less than 10% of body surface; X08.8XXA Exposure to other specified smoke, fire and flames, initial encounter; Y92.89 Other specified places as the place of occurrence of the external cause; B36.9 Superficial mycosis, unspecified; E11.42 Type 2 diabetes mellitus with diabetic polyneuropathy; E11.610 Type 2 diabetes mellitus with diabetic neuropathic arthropathy; Z87.891 Personal history of nicotine dependence; E78.5 Hyperlipidemia, unspecified; I25.2 Old myocardial infarction; I10 Essential (primary) hypertension | CPT/HCPCS: G0463 ==

== ENCOUNTER 2019-10-10 10:15 | Outpatient (CLI) | payer MEDICARE, OTHER | END 2019-10-10 23:59 | disposition home health service (06) | LOC: WOU 10:15 | PROVIDERS: ATTEND Podiatrist Foot & Ankle Surgery | DX: T25.312A Burn of third degree of left ankle, initial encounter (principal); T31.0 Burns involving less than 10% of body surface; X08.8XXA Exposure to other specified smoke, fire and flames, initial encounter; Y92.89 Other specified places as the place of occurrence of the external cause; E11.42 Type 2 diabetes mellitus with diabetic polyneuropathy; E11.610 Type 2 diabetes mellitus with diabetic neuropathic arthropathy; Z79.899 Other long term (current) drug therapy | CPT/HCPCS: 82962-TC ==

== ENCOUNTER 2019-11-28 11:39 | Outpatient (CLI) | payer MEDICARE, OTHER | END 2019-11-28 23:59 | disposition home health service (06) | LOC: WOU 11:39 | PROVIDERS: ATTEND Podiatrist Foot & Ankle Surgery | DX: E11.621 Type 2 diabetes mellitus with foot ulcer (principal); L97.512 Non-pressure chronic ulcer of other part of right foot with fat layer exposed; E11.610 Type 2 diabetes mellitus with diabetic neuropathic arthropathy; E11.42 Type 2 diabetes mellitus with diabetic polyneuropathy; E11.22 Type 2 diabetes mellitus with diabetic chronic kidney disease; I12.0 Hypertensive chronic kidney disease with stage 5 chronic kidney disease or end stage renal disease; N18.6 End stage renal disease; Z87.891 Personal history of nicotine dependence; Z79.899 Other long term (current) drug therapy; Z95.1 Presence of aortocoronary bypass graft | CPT/HCPCS: 11042; 82962; 87070; 87075; 87077; 87186; A6209 ==

== ENCOUNTER 2019-12-05 10:45 | Outpatient (CLI) | payer MEDICARE, OTHER | END 2019-12-05 23:59 | disposition home health service (06) | LOC: WOU 10:45 | PROVIDERS: ATTEND Podiatrist Foot & Ankle Surgery | DX: E11.621 Type 2 diabetes mellitus with foot ulcer (principal); L97.512 Non-pressure chronic ulcer of other part of right foot with fat layer exposed; E11.610 Type 2 diabetes mellitus with diabetic neuropathic arthropathy; E11.22 Type 2 diabetes mellitus with diabetic chronic kidney disease; N18.6 End stage renal disease; Z99.2 Dependence on renal dialysis; B35.1 Tinea unguium | CPT/HCPCS: 11042; 82962-TC ==

== ENCOUNTER 2019-12-12 11:07 | Outpatient (CLI) | payer MEDICARE, OTHER | END 2019-12-12 23:59 | disposition home health service (06) | LOC: WOU 11:07 | PROVIDERS: ATTEND Podiatrist Foot & Ankle Surgery | DX: E11.621 Type 2 diabetes mellitus with foot ulcer (principal); L97.512 Non-pressure chronic ulcer of other part of right foot with fat layer exposed; E11.610 Type 2 diabetes mellitus with diabetic neuropathic arthropathy; E11.42 Type 2 diabetes mellitus with diabetic polyneuropathy; E11.22 Type 2 diabetes mellitus with diabetic chronic kidney disease; N18.6 End stage renal disease; Z99.2 Dependence on renal dialysis; B35.1 Tinea unguium; Z79.899 Other long term (current) drug therapy | CPT/HCPCS: 11042; A6209 ==